=== PATIENT | male | born 1935 | race Caucasian/White ===

== ENCOUNTER 2022-02-27 16:52 | Emergency (ER) | payer OTHER ==
[2022-02-27] MEDS ORDERED: Sodium Chloride 0.9% 10 ML Syringe FLUSH PRN (17:24)
[2022-02-27] MEDS ORDERED: Sodium Chloride 0.9% 1,000 ML IV ONE (17:39)
[2022-02-27 21:21] VITALS: BP 99/53; PULSE 61
[2022-02-27 21:23] LABS: CORONAVIRUS COVID-19 NAA NEGATIVE (NEGATIVE)
[2022-02-27 21:24] LABS: RESPIRATORY SYNCYTIAL VIR NAA NEGATIVE (NEGATIVE)
== END 2022-02-27 21:15 ==
LOC: LL.ED 16:52
DX: E86.0 Dehydration (principal); E78.00 Pure hypercholesterolemia, unspecified; I10 Essential (primary) hypertension; K21.9 Gastro-esophageal reflux disease without esophagitis; N40.0 Benign prostatic hyperplasia without lower urinary tract symptoms; M19.90 Unspecified osteoarthritis, unspecified site; Z88.8 Allergy status to other drugs, medicaments and biological substances; Z79.899 Other long term (current) drug therapy; Z79.01 Long term (current) use of anticoagulants; Z20.822 Contact with and (suspected) exposure to COVID-19
CPT/HCPCS: 0241U; 36415; 71045; 83605; 83735; 83880; 84484; 87040; 96360; 96361; 99285-25; J7030

== ENCOUNTER 2022-10-19 08:47 | Emergency (ER) | payer OTHER, MEDICAID ==
[2022-10-19 09:44] LABS: ANION GAP 8.3 meq/L (7-15); CHLORIDE,CL 103 mmol/L (98-107); ESTIMATED GFR 60 mL/min (>=60); SODIUM,NA 140 mmol/L (136-145)
[2022-10-19] MEDS ORDERED: Furosemide 40 MG Tab PO ONE (10:46)
[2022-10-19 15:16] VITALS: BP 137/79; PULSE 74
== END 2022-10-19 12:30 ==
LOC: LL.ED 08:47
DX: I11.0 Hypertensive heart disease with heart failure (principal); I50.9 Heart failure, unspecified; I48.91 Unspecified atrial fibrillation; E78.00 Pure hypercholesterolemia, unspecified; K21.9 Gastro-esophageal reflux disease without esophagitis; E03.9 Hypothyroidism, unspecified; E66.9 Obesity, unspecified; Z68.30 Body mass index [BMI] 30.0-30.9, adult; Z86.73 Personal history of transient ischemic attack (TIA), and cerebral infarction without residual deficits; Z88.8 Allergy status to other drugs, medicaments and biological substances; Z79.899 Other long term (current) drug therapy; Z79.02 Long term (current) use of antithrombotics/antiplatelets; Z79.01 Long term (current) use of anticoagulants; Z87.891 Personal history of nicotine dependence
CPT/HCPCS: 36415; 71045; 80053; 81003; 83735; 83880; 85025; 99284; 99285; A9270-GY